=== PATIENT | male | born 1990 ===

== ENCOUNTER → 2017-12-12 08:21 | Outpatient (REF) | payer SELFPAY | LOC: OM 08:21 | PROVIDERS: Visit Provider Nurse Practitioner Family | DX: Z02.83 Encounter for blood-alcohol and blood-drug test (principal) ==

== ENCOUNTER → 2017-12-12 08:22 | Outpatient (REF) | payer SELFPAY | LOC: OM 08:22 | PROVIDERS: Visit Provider Nurse Practitioner Family | DX: Z02.1 Encounter for pre-employment examination (principal) ==

== ENCOUNTER 2020-02-25 10:36 | Outpatient (REF) | payer OTHER, SELFPAY ==
[2020-02-29 23:56] LABS: SARS-CoV-2 RNA Undetected (Undetected); SARS-CoV-2 Specimen Source Nasal
== END 2020-02-25 10:56 ==
LOC: NCHCN 10:36
PROVIDERS: PCP Internal Medicine; Visit Provider Internal Medicine
DX: Z20.828 Contact with and (suspected) exposure to other viral communicable diseases (principal)
CPT/HCPCS: U0003